=== PATIENT | female | born 1985 | race Caucasian/White ===

== ENCOUNTER 2018-12-03 18:09 | Emergency (ER) | payer BC, OTHER ==
[2018-12-03 18:14] VITALS: RESP 18
--- NOTE | 2018-12-03 18:55 | ED ---
Female Urogenital HPI - General Chief complaint: Vaginal Bleeding Stated complaint: POSS MISCARRAGE 6 WEEKS PREG Time Seen by Provider: 12/03/18 18:14 Source: patient Mode of arrival: ambulatory Limitations: no limitations - History of Present Illness Initial comments: 33-year-old female who denies past medical history , with LMP October 21, positive test 2 weeks prior presenting for evaluation of vaginal bleeding in . Patient states that there is a evening she was the evening she had faint spotting. She states that Wednesday she had midline cramping she states today the cramping has subsided however the bleeding has been heavie r. She states is more similar to her period with few clots. Patient denies any unilateral pain. Patient denies history of ectopic. Patient states she has had a previous miscarriage was concerned this was occurring. Patient did talk to Dr. Orozco who is on-call for her [employer] DES[employer] Dr. Sauceda. She told the patient that she may presents emergency department if she is concerned about the bleeding. Patient denies having a previous ultrasound to confirm intrauterine . Patient does have an appointment with Dr. Sauceda on Wednesday. Remaining ROS (-) Upon arrival patient appears well, denies pain no acute distress. - Related Data Home Medications Medication Instructions Recorded Confirmed Vit No.124/Iron/Folic 1 tab PO DAILY 10/13/14 10/13/14 [ Vitamin Tablet] Allergies Allergy/AdvReac Type Severity Reaction Status Date / Time amoxicillin Allergy Rash/Hives Verified 12/03/18 18:13 Review of Systems ROS Statement: Those systems with pertinent positive or pertinent negative responses have been documented in the HPI. ROS Other: All systems not noted in ROS Statement are negative. Past Medical History Past Medical History: No Reported History History of Any Multi-Drug Resistant Organisms: None Reported Past Surgical History: Appendectomy, Cholecystectomy Additional Past Surgical History / Comment(s): lasik, tubes in tear ducts of eyes Past Anesthesia/Blood Transfusion Reactions: No Reported Reaction Past Psychological History: No Psychological Hx Reported Smoking Status: Never smoker Past Alcohol Use History: Occasional Past Drug Use History: Marijuana - Past Family History Mother Family Medical History: Cancer Additional Family Medical History / Comment(s): leukemia Father Family Medical History: Hypertension General Exam Limitations: no limitations Course Vital Signs 12/03/18 12/03/18 18:11 20:14 Temperature 99.0 F 98.9 F Pulse Rate 73 65 Respiratory 18 18 Rate Blood Pressure 138/79 124/78 O2 Sat by Pulse 99 100 Oximetry Medical Decision Making - Medical Decision Making 33-year-old female presenting today for chief complaint of vaginal bleeding in . Positive test 2 weeks prior. Last menstrual period October 21. Patient concern for miscarriage. Pelvic exam revealed red blood in the vault moderate. No clots. Cervical os. closed. No adnexal or cervical motion ten derness. Ultrasound was not able to visualize intrauterine at this time however there is a 1.61.1 cm ovoid area of the lower endometrium possibility of blood products. Could be early failed or nonvisualized ectopic which I discussed this differential diagnosis with patient. HCG around 1200. Patient will have a prescription provided for repeat hCG to see trend. Patient denies any current pain-non clinical suspicion for ectopic at this time however cannot be excluded. No abdominal pain on examination nor pelvic exam. Patient has a follow-up appointment with [facility] DES[employer]ER on Wednesday she is established patient of Dr. Sauceda. No Rhogam indiacted given pt blood type. HgB and VS stable. At this time given patient has" [employer] DES[employer] I feel she is stable for discharge with return parameters as discussed. I discussed the case with the phone with attending provider up prior to patient's discharge was agreeable to plan. - Lab Data Result diagrams: 12/03/18 19:00 12/03/18 19:00 Lab Results 12/03/18 12/03/18 12/03/18 Range/Units 19:00 19:00 19:00 WBC 7.9 (3.8-10.6) k/uL RBC 4.46 (3.80-5.40) m/uL Hgb 13.3 (11.4-16.0) gm/dL Hct 39.5 (34.0-46.0) % MCV 88.7 (80.0-100.0) fL MCH 29.8 (25.0-35.0) pg MCHC 33.6 (31.0-37.0) g/dL RDW 15.0 (11.5-15.5) % Plt Count 206 (150-450) k/uL Neutrophils % 70 % Lymphocytes % 20 % Monocytes % 4 % Eosinophils % 3 % Basophils % 1 % Neutrophils # 5.6 (1.3-7.7) k/uL Lymphocytes # 1.6 (1.0-4.8) k/uL Monocytes # 0.3 (0-1.0) k/uL Eosinophils # 0.2 (0-0.7) k/uL Basophils # 0.1 (0-0.2) k/uL Sodium 142 (137-145) mmol/L Potassium 3.7 (3.5-5.1) mmol/L Chloride 107 (98-107) mmol/L Carbon Dioxide 28 (22-30) mmol/L Anion Gap 7 mmol/L BUN 13 (7-17) mg/dL Creatinine 0.68 (0.52-1.04) mg/dL Est GFR (CKD-EPI)AfAm >90 (>60 ml/min/1.73 sqM) Est GFR (CKD-EPI)NonAf >90 (>60 ml/min/1.73 sqM) Glucose 85 (74-99) mg/dL Calcium 9.0 (8.4-10.2) mg/dL HCG, Quant 1270.9 mIU/mL Urine Color Urine Appearance (Clear) Urine pH (5.0-8.0) Ur Specific [place] (1.001-1.035) Urine Protein (Negative) Urine Glucose (UA) (Negative) Urine Ketones (Negative) Urine Blood (Negative) Urine Nitrite (Negative) Urine Bilirubin (Negative) Urine Urobilinogen (<2.0) mg/dL Ur Leukocyte Esterase (Negative) Urine RBC (0-5) /hpf Urine WBC (0-5) /hpf Ur Squamous Epith Cells (0-4) /hpf Urine Mucus (None) /hpf Trichomonas Ag (Rapid) Negative (Negative) Blood Type Blood Type Recheck Antibody Screen Spec Expiration Date 12/03/18 12/03/18 Range/Units 19:00 19:00 WBC (3.8-10.6) k/uL RBC (3.80-5.40) m/uL Hgb (11.4-16.0) gm/dL Hct (34.0-46.0) % MCV (80.0-100.0) fL MCH (25.0-35.0) pg MCHC (31.0-37.0) g/dL RDW (11.5-15.5) % Plt Count (150-450) k/uL Neutrophils % % Lymphocytes % % Monocytes % % Eosinophils % % Basophils % % Neutrophils # (1.3-7.7) k/uL Lymphocytes # (1.0-4.8) k/uL Monocytes # (0-1.0) k/uL Eosinophils # (0-0.7) k/uL Basophils # (0-0.2) k/uL Sodium (137-145) mmol/L Potassium (3.5-5.1) mmol/L Chloride (98-107) mmol/L Carbon Dioxide (22-30) mmol/L Anion Gap mmol/L BUN (7-17) mg/dL Creatinine (0.52-1.04) mg/dL Est GFR (CKD-EPI)AfAm (>60 ml/min/1.73 sqM) Est GFR (CKD-EPI)NonAf (>60 ml/min/1.73 sqM) Glucose (74-99) mg/dL Calcium (8.4-10.2) mg/dL HCG, Quant mIU/mL Urine Color Light Yellow Urine Appearance Cloudy H (Clear) Urine pH 8.0 (5.0-8.0) Ur Specific [place] 1.013 (1.001-1.035) Urine Protein Negative (Negative) Urine Glucose (UA) Negative (Negative) Urine Ketones Negative (Negative) Urine Blood Moderate H (Negative) Urine Nitrite Negative (Negative) Urine Bilirubin Negative (Negative) Urine Urobilinogen <2.0 (<2.0) mg/dL Ur Leukocyte Esterase Negative (Negative) Urine RBC >182 H (0-5) /hpf Urine WBC 4 (0-5) /hpf Ur Squamous Epith Cells <1 (0-4) /hpf Urine Mucus Rare H (None) /hpf Trichomonas Ag (Rapid) (Negative) Blood Type A Positive Blood Type Recheck CABO Indicated Antibody Screen NEGATIVE Spec Expiration Date 12/06/2018 - 2299 Disposition Clinical Impression: Threatened miscarriage Disposition: HOME SELF-CARE Condition: Good Instructions (If sedation given, give patient instructions): Threatened Miscarriage (ED) Additional Instructions: Please use medication as discussed. Please follow-up with OBGYN on Wednesday as scheduled, please repeat HCG prior to appointment. Please return to emergency room if the symptoms increase or worsen or for any other concerns, increasing pain, dizziness, weakness. Is patient prescribed a controlled substance at d/c from ED?: No Referrals: Enrique Hartman MD [Primary Care Provider] - 1-2 days Saad Sauceda MD [STAFF PHYSICIAN] - 1-2 days Time of Disposition: 19:54
[2018-12-03 19:13] LABS: Basophils # (A) 0.1 k/uL (0-0.2); Basophils % (A) 1 %; Eosinophils # (A) 0.2 k/uL (0-0.7); Eosinophils % (A) 3 %; HCT 39.5 % (34.0-46.0); HGB 13.3 gm/dL (11.4-16.0); Lymphocytes # (A) 1.6 k/uL (1.0-4.8); Lymphocytes % (A) 20 %; MCH 29.8 pg (25.0-35.0); MCHC 33.6 g/dL (31.0-37.0); MCV 88.7 fL (80.0-100.0); Mean Platelet Volume 7.8; Monocytes # (A) 0.3 k/uL (0-1.0); Monocytes % (A) 4 %; Neutrophils # (A) 5.6 k/uL (1.3-7.7); Neutrophils % (A) 70 %; Platelet Count 206 k/uL (150-450); RBC 4.46 m/uL (3.80-5.40); WBC 7.9 k/uL (3.8-10.6)
[2018-12-03 19:22] LABS: African American GFR (CKD) >90 (>60 ml/min/1.73 sqM); Anion Gap 7 mmol/L; Blood Urea Nitrogen 13 mg/dL (7-17); Carbon Dioxide 28 mmol/L (22-30); Chloride 107 mmol/L (98-107); Glucose 85 mg/dL (74-99); Potassium 3.7 mmol/L (3.5-5.1); Sodium 142 mmol/L (137-145)
[2018-12-03 19:38] LABS: HCG,Quantitative Serum 1270.9 mIU/mL
--- NOTE | 2018-12-03 19:48 | US ---
EXAMINATION TYPE: Ultrasound OB <= 14 weeks transvaginal plus Dopplers DATE OF EXAM: 12/03/2018 7:32 PM COMPARISON: NONE CLINICAL HISTORY: 33-year-old female vaginal bleeding x 2 days; EXAM PERFORMED: Transvaginal (TV) and Transabdominal (TA). Color Doppler and spectral waveform [place] sis of the ovarian arteries and veins. FINDINGS: EXAM MEASUREMENTS: GESTATIONAL AGE / DATING Physician Established: Not yet established Dates by LMP: (6 weeks/1 days) EDC: 07/28/2019 Dates by First Scan: No previous this is first scan Dates by Current Scan for: No IUP seen at this time MATERNAL ANATOMY Uterus: 8.1 x 5.8 x 4.1cm with hypoechoic oval area = 1.6 x 1.1 x 0.6cm noted in lower endometrium, p ossible blood. 5 mm cervical nabothian cyst is also seen. Right Ovary: multiple follicles Left Ovary: multiple follicles with possible corpus luteum = 1.6 x 1.3 x 1.8cm Satisfactory arterial and venous flow demonstrated bilaterally. Post CDS / Adnexa: wnl Presence of free fluid: no Presence of corpus luteal cyst: in left ovary GESTATION / SURVEY Date of LMP: 10/21/2018 Beta HcG (if available): NA No IUP or ectopic is seen at this time. IMPRESSION: 1. No visualized intrauterine . However, there is a 1.6 x 1.1 cm ovoid area along the lower endometrium. Blood products are not excluded at this time. Differential considerations include too ea rly to visualize intrauterine , failed , and nonvisualized ectopic at thi s time. Serial beta hCG recommended with ultrasound follow-up as indicated. 2. No sonographic evidence for ovarian torsion.
[2018-12-03 20:15] VITALS: BP 124/78; PULSE 65; TEMP 98.9
[2018-12-03 20:27] LABS: Appearance,Urine Cloudy (Clear); Bilirubin,Urine Negative (Negative); Blood,Urine Moderate (Negative); Color,Urine Light Yellow; Glucose,Urine (UA) Negative (Negative); Ketones,Urine Negative (Negative); Leukocyte Esterase,Urine Negative (Negative); Mucus,Urine Rare /hpf; Nitrite,Urine Negative (Negative); Protein,Urine Negative (Negative); RBC,Urine >182 /hpf (0-5); Specific Gravity,Urine 1.013 (1.001-1.035); Squamous Epithelial Cell,Urine <1 /hpf (0-4); Urobilinogen,Urine <2.0 mg/dL (<2.0); WBC,Urine 4 /hpf (0-5)
[2018-12-04 15:43] LABS: N. gonorrhoeae,PCR Negative (Neg,Equiv); Neisseria Source Vagina
== END 2018-12-03 20:15 | disposition home or self-care (01) ==
LOC: EC 18:09
DX: O20.0 Threatened abortion (principal); Z3A.01 Less than 8 weeks gestation of pregnancy; Z88.0 Allergy status to penicillin
CPT/HCPCS: 36415; 76801; 76817; 80048; 81001; 84702; 85025; 86850; 86900; 86901; 87070; 87205; 87591; 87808; 99284

== ENCOUNTER → 2018-12-05 | Outpatient (CLI) | payer OTHER | END | disposition home or self-care (01) | LOC: LABWHC1 09:28 | PROVIDERS: ATTEND Physician Assistant Medical | DX: O20.0 Threatened abortion (principal); Z3A.00 Weeks of gestation of pregnancy not specified | CPT/HCPCS: 36415; 84702 ==

== ENCOUNTER → 2018-12-16 | Outpatient (CLI) | payer OTHER | END | disposition home or self-care (01) | LOC: LABWHC1 17:13 | PROVIDERS: ATTEND Obstetrics & Gynecology | DX: O02.1 Missed abortion (principal) | CPT/HCPCS: 36415; 84702 ==

== ENCOUNTER → 2019-03-20 | Outpatient (CLI) | payer OTHER ==
--- NOTE | 2019-03-20 14:02 | US ---
EXAMINATION TYPE: Transabdominal DATE OF EXAM: 03/20/2019 1:34 PM COMPARISON: NONE CLINICAL HISTORY: O46.91 bleeding. Pt states vaginal bleeding x 2 days, large clot passed EXAM PERFORMED: Transvaginal (TV) and Transabdominal (TA) EXAM MEASUREMENTS: GESTATIONAL AGE / DATING Physician Established: Not yet established Dates by LMP: (7 weeks/5 days) EDC: 11/01/2019 Dates by First Scan: No prior Dates by Current Scan for: No IUP seen at this time MATERNAL ANATOMY Uterus: 9.4 x 5.1 x 5.9 cm Right Ovary: 2.6 x 2.3 x 1.8 cm. Complicated paraovarian follicle versus adjacent bowel. Left Ory 3.2 x 1.9 x 2.7 cm Post CDS / Adnexa: wnl Presence of free fluid: No Presence of corpus luteal cyst: 2.4 x 0.9 x 1.8 cm GESTATION / SURVEY IUP: No IUP seen at this time, Endo 5mm thick, possible echogenic area with shadowing within endo= 0 .6 x 0.7 cm Date of LMP: 01/25/2019 Beta HcG (if available): Not available at this time Results called to Dr. Sauceda at time of exam IMPRESSION: No evidence of intrauterine . The endometrium within the lower uterine segment is slightly e chogenic in comparison to the remainder of the endometrium with an area of shadowing. This could repr esent simply a focus of air, however given the recent spontaneous the possibility of retaine d products is considered. If beta hCG does not decreased to 0, fevers, or persistent pain repeat ultr asound would be recommended. Endometrium is not greater than 2 cm and is not hypervascular therefore retained products is unlikely.
== END | disposition home or self-care (01) ==
LOC: RADUSWWP 12:58
PROVIDERS: ATTEND Obstetrics & Gynecology
DX: O46.91 Antepartum hemorrhage, unspecified, first trimester (principal)
CPT/HCPCS: 76801; 76817

== ENCOUNTER → 2019-05-12 | Outpatient (CLI) | payer OTHER ==
[2019-05-12 18:10] LABS: Cardiolipin Ab IgG Interp NEGATIVE (NEGATIVE); Cardiolipin Ab IgM Interp NEGATIVE (NEGATIVE); Cardiolipin IgA Antibody 1.1 U/mL; Cardiolipin IgM Antibody 0.3 U/mL
[2019-05-15 14:08] LABS: APTT 38 Sec(s) (<43); Dilute Russell Viper Venom 35 Sec(s) (<44)
== END | disposition home or self-care (01) ==
LOC: LABWHC1 09:30
PROVIDERS: ATTEND Obstetrics & Gynecology
DX: N96 Recurrent pregnancy loss (principal)
CPT/HCPCS: 36415; 85613; 85730; 86146; 86147

== ENCOUNTER 2020-10-22 06:20 | Inpatient (IN) | payer OTHER ==
[2020-10-22] MEDS ORDERED: TERBUTALINE 1 MG/ML VIAL SQ PRN (06:36)
[2020-10-22] MEDS ORDERED: CARBOPROST TROMETHAMINE 250 MCG/ML 1 ML AMP IM PRN (06:36)
[2020-10-22] MEDS ORDERED: LIDOCAINE 0.5% (PF) 5 MG/ML (50 ML SDV) SQ PRN (06:36)
[2020-10-22] MEDS ORDERED: OXYTOCIN 10 UNIT/ML 1 ML VIAL IM PRN (06:36)
[2020-10-22] MEDS ORDERED: METHYLERGONOVINE 0.2 MG/ML 1 ML AMP IM PRN (06:36)
[2020-10-22] MEDS ORDERED: OXYTOCIN 30 UNITS/500 ML NS 30 UNIT in SALINE 1 500ML.BAG IV SCH ×2 (06:45→12:00)
[2020-10-22] MEDS ORDERED: LACTATED RINGERS 1,000 ML IV SCH (06:45)
[2020-10-22] MEDS: LACTATED RINGERS 1,000 ML IV SCH (06:53)
[2020-10-22 07:03] LABS: Basophils % (A) 0 %; Eosinophils # (A) 0.1 k/uL (0-0.7); Eosinophils % (A) 1 %; HCT 39.5 % (34.0-46.0); HGB 13.5 gm/dL (11.4-16.0); Lymphocytes # (A) 1.7 k/uL (1.0-4.8); Lymphocytes % (A) 17 %; MCH 31.7 pg (25.0-35.0); MCHC 34.1 g/dL (31.0-37.0); Mean Platelet Volume 10.1; Monocytes # (A) 0.5 k/uL (0-1.0); Monocytes % (A) 5 %; Neutrophils # (A) 7.5 k/uL (1.3-7.7); Neutrophils % (A) 75 %; Platelet Count 143 k/uL (150-450); RBC 4.25 m/uL (3.80-5.40); RDW 13.8 % (11.5-15.5)
[2020-10-22] MEDS ORDERED: BUTORPHANOL 1 MG/ML 1 ML VIAL IV PRN (08:48)
--- NOTE | 2020-10-22 08:53 | P.HPOB ---
History of Present Illness H&P Date: 10/22/20 Chief Complaint: 39+ weeks, elective induction The patient is a 34-year-old 5 para 1031 admitted at 39-5/7 weeks as established by last menstrual period and confirmed by 10 week ultrasound. She is admitted for elective induction of labor with all signs reassuring. Her has been uncomplicated and group B strep status is negative. She does currently have a category 1 heart rate tracing. Obstetrical history: 5 para [id number] with 1 term vaginal delivery followed by 3 early miscarriages not requiring D&C. Current statistics are lis dolly in history present illness. EDC of 10/24/2020 was established by last menstrual period and confirmed by 10 week ultrasound. Laboratory workup done traits of blood type of A+ with a negative antibody screen. Rubella status is immune. Remainder of the laboratory workup was within normal limits. One hour Glucola was normal and group B strep status is negative. Gynecologic history: Unremarkable with no history of any infections to include STDs. Review of Systems Review of systems is confined to history of present illness. Past Medical History Past Medical History: No Reported History History of Any Multi-Drug Resistant Organisms: None Reported Past Surgical History: Appendectomy, Cholecystectomy Additional Past Surgical History / Comment(s): lasik, tubes in tear ducts of eyes Past Anesthesia/Blood Transfusion Reactions: No Reported Reaction Past Psychological History: No Psychological Hx Reported Smoking Status: Never smoker Past Alcohol Use History: Occasional Past Drug Use History: Marijuana - Past Family History Mother Family Medical History: Cancer Additional Family Medical History / Comment(s): leukemia Father Family Medical History: Hypertension Medications and Allergies Home Medications Medication Instructions Recorded Confirmed Type Vit No.124/Iron/Folic 1 tab PO DAILY 10/13/14 10/22/20 History [ Vitamin Tablet] Aspirin 1 tab PO ONCE 10/22/20 10/22/20 History Cetirizine HCl [Zyrtec] 1 tab PO ONCE 10/22/20 10/22/20 History Allergies Allergy/AdvReac Type Severity Reaction Status Date / Time amoxicillin Allergy Rash/Hives Verified 12/03/18 18:13 Exam Vital Signs Temp Pulse Resp BP Pulse Ox 10/22/20 06:49 97.2 F L 73 16 132/95 99 Intake and Output 10/21/20 10/22/20 10/22/20 22:59 06:59 14:59 Other: Weight 98.43 kg In general, this is a well-developed, well-nourished white female in no acute distress. Her heart has a regular rhythm and rate without murmur. Her lungs are clear to auscultation bilaterally in all clark. Her abdomen is gravid, nondistended, has normal active bowel sounds, is soft, nontender, and without any palpable masses aside from uterine fundus. Her extremities are without any cyanosis, clubbing, or significant edema and are nontender to palpation bilaterally. Digital cervical examination demonstrates her cervix to be 3+ meters dilated, 60% effaced, with the vertex in presentation at -2 station. Artificial rupture of membranes is carried out demonstrating light to moderate meconium-stained fluid. Results Result Diagrams: 10/22/20 06:50 Abnormal Lab Results - Last 24 Hours (Table) 10/22/20 Range/Units 06:50 Plt Count 143 L (150-450) k/uL Assessment and Plan (1) Term Current Visit: Yes Status: Acute Code(s): Z34.90 - ENCNTR FOR SUPRVSN OF NORMAL , UNSP, UNSP TRIMESTER SNOMED Code(s): 78062369 Plan: The patient is admitted with favorable cervix for elective induction of labor. She has had Pitocin started and has undergone artificial rupture of membranes. She'll have close maternal surveillance and expectant management will be practiced. She is a good candidate for either IV or epidural analgesia, whichever she may choose. The nurse cold press operator will be present at delivery for meconium-stained fluid should direct laryngoscopy become necessary.
[2020-10-22] MEDS ORDERED: ROPIVACAINE 100 MG, fentaNYL (PF). 200 MCG in SODIUM CHLORIDE 0.9% 76 ML EPIDURAL ONE (11:23)
[2020-10-22] MEDS ORDERED: diphenhydrAMINE 50 MG CAP PO PRN (11:59)
[2020-10-22] MEDS ORDERED: LANOLIN CREAM 5 GM TUBE TOPICAL PRN (11:59)
[2020-10-22] MEDS ORDERED: ZOLPIDEM 5 MG TAB PO PRN (11:59)
[2020-10-22] MEDS ORDERED: diphenhydrAMINE 50 MG/ML 1 ML VIAL IVP PRN ×2 (11:59)
[2020-10-22] MEDS ORDERED: HYDROCORTISONE 2.5% RECTAL CREAM 30 GM TUBE RECTAL PRN (11:59)
[2020-10-22] MEDS ORDERED: HYDROcodone/APAP 7.5-325MG 1 EACH TAB PO PRN (11:59)
[2020-10-22] MEDS ORDERED: BENZOCAINE/MENTHOL SPRAY 1 GM/SPRAY AEROSOL TOPICAL PRN (11:59)
[2020-10-22] MEDS ORDERED: HYDROcodone/APAP 5-325MG 1 EACH TAB PO PRN (11:59)
[2020-10-22] MEDS ORDERED: diphenhydrAMINE 25 MG CAP PO PRN (11:59)
[2020-10-22] MEDS ORDERED: SIMETHICONE 80 MG CHEWABLE PO PRN (11:59)
--- NOTE | 2020-10-22 12:03 | P.PROBDLV ---
Vaginal Delivery Note - . Vaginal Delivery Note: The patient is a 34-year-old 5 para 1031 admitted at 39-5/7 weeks by good dating parameters. She is admitted for elective induction of labor with all signs reassuring. Her has been entirely uncomplicated and group B strep status is negative. On labor and delivery, she had Pitocin augmentation started with category 1 heart rate tracing. She underwent artificial rupture of membranes demonstrating light meconium-stained fluid. She then prog ressed fairly quickly through the active phase of labor to complete and pushed over the course of approximately 4 contractions to a normal spontaneous vaginal delivery of a viable 8 lbs. 13 oz. baby boy with Apgars of 9 at 1 minute and 9 at 5 minutes delivered in the left occiput anterior position. The placenta was delivered spontaneously, intact, and grossly normal although there was a small accessory placental lobe. There was a grossly normal three-vessel cord inserted approximately 3 cm from the margin of the placental disc. There were no lacerations of the perineum, vagina, or cervix. Estimated blood loss for the entire case was approximately 200 mL. There were no compilations. All sponge, instrument, and needle counts were correct. Both mother and infant are resting comfortably in recovery.
[2020-10-22] MEDS: IBUPROFEN 600 MG TAB PO SCH ×3 (12:19→20:37)
[2020-10-22] MEDS: ACETAMINOPHEN TAB 325 MG TAB PO PRN (18:36)
[2020-10-22] MEDS: SENNOSIDES-DOCUSATE SODIUM 1 EACH TAB PO SCH (20:37)
[2020-10-23] MEDS: LACTATED RINGERS 1,000 ML IV SCH (00:36)
[2020-10-23] MEDS: IBUPROFEN 600 MG TAB PO SCH ×2 (02:57→09:40)
[2020-10-23 07:12] LABS: Basophils % (A) 0 %; Eosinophils # (A) 0.1 k/uL (0-0.7); Eosinophils % (A) 1 %; HCT 39.4 % (34.0-46.0); HGB 12.6 gm/dL (11.4-16.0); Lymphocytes # (A) 1.4 k/uL (1.0-4.8); Lymphocytes % (A) 13 %; MCH 30.3 pg (25.0-35.0); MCV 94.6 fL (80.0-100.0); Mean Platelet Volume 9.9; Monocytes # (A) 0.4 k/uL (0-1.0); Monocytes % (A) 4 %; Neutrophils # (A) 8.6 k/uL (1.3-7.7); Neutrophils % (A) 80 %; Platelet Count 136 k/uL (150-450); RBC 4.17 m/uL (3.80-5.40); RDW 14.3 % (11.5-15.5); WBC 10.7 k/uL (3.8-10.6)
[2020-10-23] MEDS: ACETAMINOPHEN TAB 325 MG TAB PO PRN (07:48)
[2020-10-23] MEDS: SENNOSIDES-DOCUSATE SODIUM 1 EACH TAB PO SCH (07:48)
--- NOTE | 2020-10-23 08:46 | P.DS ---
Providers Date of admission: 10/22/20 06:20 Expected date of discharge: 10/23/20 Attending physician: Saad Sauceda Primary care physician: Stated None - Discharge Diagnosis(es) (1) Term Current Visit: Yes Status: Acute (2) Normal spontaneous vaginal delivery Current Visit: Yes Status: Acute Hospital Course: The patient is a 34-year-old 5 para 1031 admitted at 39-5/7 weeks by good dating parameters. She is admitted for elective induction with all signs reassuring. Her was uncomplicated and group B strep status is negative. On labor and delivery, she had Pitocin started followed by artificial rupture of membranes demonstrating lightly meconium-stained fluid. She made rapid progress through both the latent and active phase of labor to complete and pushed quickly to a normal spontaneous vaginal delivery of a viable 8 lbs. 13 oz. baby boy with Apgars of 9 at 1 minute and 9 at 5 is. Her course was unremarkable with vital signs remained stable and attempt was afebrile throughout. She was deemed stable for discharge on day #1 was discharged home to follow-up in the office in 6 weeks' time routinely. Discharge instructions included calling for any significantly increased bleeding or foul-smelling lochia, significantly increased fever or abdominal pain, perineal complaints, breast complaints, or anything also concerned her. She is additionally instructed in nothing in the vagina for at least 6 weeks time to include intercourse Ana she understood her instructions and agrees to follow up as noted above. Discharge medications included continued vitamins as she has opted to breast-feed. She was otherwise to use [id number] analgesic pain medications as needed. Maternal blood type is A+ and rubella status is immune. Procedures: #1. Pitocin induction #2. Normal spontaneous vaginal delivery Patient Condition at Discharge: Stable Plan - Discharge Summary New Discharge Prescriptions: No Action Vit No.124/Iron/Folic [ Vitamin Tablet] 1 tab PO DAILY Aspirin 1 tab PO ONCE Cetirizine HCl [Zyrtec] 1 tab PO ONCE Discharge Medication List Vit No.124/Iron/Folic [ Vitamin Tablet] 1 tab PO DAILY 10/13/14 [History] Aspirin 1 tab PO ONCE 10/22/20 [History] Cetirizine HCl [Zyrtec] 1 tab PO ONCE 10/22/20 [History] Follow up Appointment(s)/Referral(s): Saad Sauceda MD [STAFF PHYSICIAN] - 6 Weeks Discharge Disposition: HOME SELF-CARE
[2020-10-23 08:49] VITALS: BP 123/72; PULSE 76; RESP 16; TEMP 97.9
== END 2020-10-23 11:58 | disposition home or self-care (01) | DRG 807 ==
LOC: 4FBP 06:20
PROVIDERS: ADMIT Obstetrics & Gynecology; ATTEND Obstetrics & Gynecology
PROC: 10E0XZZ Delivery of Products of Conception, External Approach (ICD-10-PCS; principal; 2020-10-22)
DX: O77.0 Labor and delivery complicated by meconium in amniotic fluid (principal); Z37.0 Single live birth; Z3A.39 39 weeks gestation of pregnancy; Z80.6 Family history of leukemia; Z82.49 Family history of ischemic heart disease and other diseases of the circulatory system
CPT/HCPCS: 85025; 86850; 86900; 86901